=== PATIENT | female | born 1950 | race Hispanic/Latino ===

== ENCOUNTER 2018-06-28 09:34 | Emergency (ER) | payer OTHER ==
[2018-06-28 09:51] LABS: BASOPHILS % (AUTO) 0.5 % (0.0-5.0); EOSINOPHILS % (AUTO) 1.9 % (0.0-8.0); HEMATOCRIT 37.6 % (36-48); LYMPHOCYTES % (AUTO) 19.7 % (21.0-51.0); MEAN CORPUSCULAR HEMOGLOBIN 30.1 pg (27.0-33.0); MEAN CORPUSCULAR HGB CONC 33.8 g/dL (32.0-36.0); MEAN CORPUSCULAR VOLUME 88.8 fL (79-99); MONOCYTES % (AUTO) 8.9 % (3.0-13.0); PLATELET COUNT (AUTO) 166 K/uL (130-400); RED BLOOD CELL COUNT(AUTO) 4.23 MIL/uL (4.00-5.50); WHITE BLOOD COUNT (AUTO) 9.5 K/uL (4.8-10.8)
[2018-06-28] MEDS ORDERED: ORPHENADRINE CITRATE 30 MG/ML ML ONE (10:28)
[2018-06-28 10:30] LABS: ALBUMIN 3.2 g/dL (3.5-5.0); BILIRUBIN,TOTAL 0.5 mg/dL (0.2-1.0); CREATININE 0.9 mg/dL (0.5-1.5); POTASSIUM 3.9 mmol/L (3.5-5.1); TOTAL PROTEIN, SERUM 6.8 g/dL (6.0-8.3)
== END 2018-06-28 11:22 | disposition home or self-care (01) ==
LOC: EDH 09:34
DX: M25.812 Other specified joint disorders, left shoulder (principal); M25.512 Pain in left shoulder; M19.90 Unspecified osteoarthritis, unspecified site; E07.9 Disorder of thyroid, unspecified; Z88.8 Allergy status to other drugs, medicaments and biological substances; Z87.891 Personal history of nicotine dependence
CPT/HCPCS: 36415; 73030; 80053; 84484; 85025; 93005; 96374; 99285; J2360

== ENCOUNTER → 2018-07-10 | Outpatient (CLI) | payer OTHER | END | disposition home or self-care (01) | LOC: OIH 10:45 | PROVIDERS: ATTEND Internal Medicine | DX: M17.0 Bilateral primary osteoarthritis of knee (principal); M23.92 Unspecified internal derangement of left knee | CPT/HCPCS: 73560 ==

== ENCOUNTER 2018-12-10 06:51 | Emergency (ER) | payer OTHER ==
[2018-12-10] MEDS ORDERED: ASPIRIN 325 MG TABLET ONE (07:35)
[2018-12-10] MEDS ORDERED: NITROGLYCERIN 1GM/1 INCH PACKET TD ONE (07:35)
[2018-12-10 07:40] LABS: BASOPHILS % (AUTO) 0.8 % (0.0-5.0); EOSINOPHILS % (AUTO) 4.2 % (0.0-8.0); HEMATOCRIT 37.7 % (36-48); LYMPHOCYTES % (AUTO) 41.4 % (21.0-51.0); MEAN CORPUSCULAR HEMOGLOBIN 29.8 pg (27.0-33.0); MEAN CORPUSCULAR HGB CONC 32.8 g/dL (32.0-36.0); MEAN CORPUSCULAR VOLUME 90.8 fL (79-99); MONOCYTES % (AUTO) 7.1 % (3.0-13.0); NEUTROPHILS % (AUTO) 46.5 % (40.0-77.0); NUCLEATED RED BLOOD CELLS 0.1 % (0.0-0.19); PLATELET COUNT (AUTO) 194 K/uL (130-400); RED BLOOD CELL COUNT(AUTO) 4.15 MIL/uL (4.00-5.50); RED CELL DISTRIBUTION WIDTH 14.4 % (11.0-15.5); WHITE BLOOD COUNT (AUTO) 5.3 K/uL (4.8-10.8)
[2018-12-10 07:50] LABS: INR 0.91 (0.85-1.15); PROTHROMBIN TIME 9.6 SEC (9.6-11.6)
[2018-12-10 08:42] LABS: ALBUMIN 3.2 g/dL (3.5-5.0); BILIRUBIN,TOTAL 0.2 mg/dL (0.2-1.0); MAGNESIUM 1.9 mg/dL (1.80-2.40); THYROID STIMULATING HORMONE 1.72 uIU/mL (0.36-3.74); TOTAL PROTEIN, SERUM 6.7 g/dL (6.0-8.3)
[2018-12-10 08:56] LABS: CREATININE 0.8 mg/dL (0.5-1.5)
== END 2018-12-10 11:31 | disposition home or self-care (01) ==
LOC: EDH 06:51
DX: R00.2 Palpitations (principal); R07.89 Other chest pain; R03.0 Elevated blood-pressure reading, without diagnosis of hypertension; E03.9 Hypothyroidism, unspecified; M19.90 Unspecified osteoarthritis, unspecified site; Z88.8 Allergy status to other drugs, medicaments and biological substances
CPT/HCPCS: 36415; 71045; 80053; 82550; 83735; 84443; 84484; 85025; 85610; 85730; 93005

== ENCOUNTER → 2019-07-22 | Outpatient (CLI) | payer OTHER | END | disposition home or self-care (01) | LOC: RAH 13:09 | PROVIDERS: ATTEND Internal Medicine | DX: J34.2 Deviated nasal septum (principal); H55.00 Unspecified nystagmus; J32.1 Chronic frontal sinusitis; R09.81 Nasal congestion | CPT/HCPCS: 70486 ==

== ENCOUNTER → 2019-08-12 | Outpatient (CLI) | payer OTHER | END | disposition home or self-care (01) | LOC: RAH 09:20 | PROVIDERS: ATTEND Internal Medicine | DX: S90.851A Superficial foreign body, right foot, initial encounter (principal); R59.0 Localized enlarged lymph nodes; M25.462 Effusion, left knee; X58.XXXA Exposure to other specified factors, initial encounter; Y93.89 Activity, other specified; Y92.89 Other specified places as the place of occurrence of the external cause; Y99.8 Other external cause status | CPT/HCPCS: 76882 ==

== ENCOUNTER 2019-11-15 00:47 | Emergency (ER) | payer OTHER | END 2019-11-15 02:11 | disposition home or self-care (01) | LOC: EDH 00:47 | DX: F43.0 Acute stress reaction (principal); R00.2 Palpitations; M19.90 Unspecified osteoarthritis, unspecified site; Z90.49 Acquired absence of other specified parts of digestive tract; Z90.710 Acquired absence of both cervix and uterus; Z88.8 Allergy status to other drugs, medicaments and biological substances; Z88.9 Allergy status to unspecified drugs, medicaments and biological substances | CPT/HCPCS: 93005 ==

== ENCOUNTER → 2020-02-03 | Outpatient (CLI) | payer OTHER | END | disposition home or self-care (01) | LOC: OIH 10:39 | PROVIDERS: ATTEND Internal Medicine | DX: M54.16 Radiculopathy, lumbar region (principal); I70.0 Atherosclerosis of aorta | CPT/HCPCS: 72100 ==

== ENCOUNTER → 2020-04-08 | Outpatient (CLI) | payer OTHER ==
[~2020-04-08] MED LIST: REGADENOSON 0.4 MG/5 ML PF SYG IVP SCH
== END | disposition home or self-care (01) ==
LOC: SHCH 07:45
PROVIDERS: ATTEND Internal Medicine Cardiovascular Disease
DX: I25.10 Atherosclerotic heart disease of native coronary artery without angina pectoris (principal)
CPT/HCPCS: 78452; 93017; 96374; A9500 ×2; J2785

== ENCOUNTER → 2021-01-19 | Outpatient (CLI) | payer OTHER | END | disposition home or self-care (01) | LOC: OIH 09:49 | PROVIDERS: ATTEND Internal Medicine | DX: I10 Essential (primary) hypertension (principal); I70.0 Atherosclerosis of aorta | CPT/HCPCS: 71046 ==

== ENCOUNTER 2022-02-26 10:35 | Emergency (ER) | payer OTHER ==
[~2022-02-26] VITALS: Ht 152.4 cm; Wt 77.6 kg
[2022-02-26] MEDS ORDERED: NAPROXEN 500 MG TABLET PO SCH (11:00)
[2022-02-26] MEDS ORDERED: NAPROXEN 250 MG TAB ONE (11:06)
[2022-02-26] MEDS ORDERED: NAPR-1196 PO (12:01)
[2022-02-26 12:22] VITALS: BP 135/65
== END 2022-02-26 12:22 | disposition home or self-care (01) ==
LOC: EDH 10:35
DX: S39.012A Strain of muscle, fascia and tendon of lower back, initial encounter (principal); F32.A Depression, unspecified; M79.7 Fibromyalgia; Z90.710 Acquired absence of both cervix and uterus; X58.XXXA Exposure to other specified factors, initial encounter; Y93.89 Activity, other specified; Y92.89 Other specified places as the place of occurrence of the external cause; Y99.8 Other external cause status
CPT/HCPCS: 72100

== ENCOUNTER 2022-05-06 13:18 | Emergency (ER) | payer OTHER ==
[~2022-05-06] VITALS: Ht 152.4 cm; Wt 77.1 kg
[~2022-05-06 13:18] MED LIST changes: +NAPR-1196 PO; -REGADENOSON 0.4 MG/5 ML PF SYG IVP SCH
[2022-05-06 14:26] VITALS: BP 140/58
[2022-05-06] MEDS ORDERED: ACETAMINOPHEN 500 MG TABLET PO ONE (14:30)
== END 2022-05-06 14:45 | disposition home or self-care (01) ==
LOC: EDH 13:18
DX: T23.012A Burn of unspecified degree of left thumb (nail), initial encounter (principal); M79.7 Fibromyalgia; Z79.1 Long term (current) use of non-steroidal anti-inflammatories (NSAID); T31.0 Burns involving less than 10% of body surface; X13.1XXA Other contact with steam and other hot vapors, initial encounter; Y93.89 Activity, other specified; Y92.89 Other specified places as the place of occurrence of the external cause; Y99.8 Other external cause status
CPT/HCPCS: 99282

== ENCOUNTER 2022-09-10 19:28 | Emergency (ER) | payer OTHER ==
[~2022-09-10] VITALS: Ht 152.4 cm; Wt 79.4 kg
[2022-09-10 20:27] LABS: BASOPHILS % (AUTO) 0.4 % (0.0-5.0); EOSINOPHILS % (AUTO) 0.2 % (0.0-8.0); HEMATOCRIT 39.5 % (36-48); LYMPHOCYTES % (AUTO) 18.7 % (21.0-51.0); MEAN CORPUSCULAR HGB CONC 33.7 g/dL (32.0-36.0); MONOCYTES % (AUTO) 6.7 % (3.0-13.0); NEUTROPHILS % (AUTO) 73.8 % (40.0-77.0); PLATELET COUNT (AUTO) 202 K/uL (130-400); RED BLOOD CELL COUNT(AUTO) 4.44 MIL/uL (4.00-5.50); RED CELL DISTRIBUTION WIDTH 13.2 % (11.0-15.5); WHITE BLOOD COUNT (AUTO) 8.3 K/uL (4.8-10.8)
[2022-09-10 20:31] LABS: APPEARANCE,URINE CLEAR (CLEAR); BILIRUBIN,URINE NEGATIVE (NEGATIVE); COLOR,URINE LIGHT-YELLOW (YELLOW); GLUCOSE, URINE (UA) NEGATIVE (NEGATIVE); KETONES,URINE 40 mg/dL (NEGATIVE); LEUKOCYTE ESTERASE ,URINE NEGATIVE Leu/uL (NEGATIVE); NITRATE,URINE NEGATIVE (NEGATIVE); OCCULT BLOOD,URINE NEGATIVE (NEGATIVE); PH,URINE 5.5 (5.0-8.0); PROTEIN,URINE NEGATIVE (NEGATIVE); UROBILINOGEN,URINE 0.2 mg/dL (0.2-1.0)
[2022-09-10 20:36] LABS: CREATININE 0.9 mg/dL (0.5-1.5); POTASSIUM 3.7 mmol/L (3.5-5.1)
[2022-09-10 20:41] LABS: ALBUMIN 3.9 g/dL (3.5-5.0); TOTAL PROTEIN, SERUM 8.2 g/dL (6.0-8.3)
[2022-09-10 22:00] VITALS: BP 146/71
[2022-09-10] MEDS ORDERED: ONDA-104 PO (22:09)
[2022-09-10] MEDS ORDERED: OMEP40CA21 PO (22:09)
== END 2022-09-10 22:31 | disposition home or self-care (01) ==
LOC: EDH 19:28
DX: R10.11 Right upper quadrant pain (principal); B34.9 Viral infection, unspecified; Z20.822 Contact with and (suspected) exposure to COVID-19; M79.7 Fibromyalgia; E03.9 Hypothyroidism, unspecified; Z88.8 Allergy status to other drugs, medicaments and biological substances; Z79.899 Other long term (current) drug therapy; Z98.890 Other specified postprocedural states; Z90.89 Acquired absence of other organs
CPT/HCPCS: 99283; 87635; 80053; 83690; 85025; 87804 ×2; 81003; 36415; C9803

== ENCOUNTER → 2022-10-31 | Outpatient (CLI) | payer OTHER ==
[~2022-10-31] MED LIST changes: +OMEP40CA21 PO; +ONDA-104 PO
== END | disposition home or self-care (01) ==
LOC: RAH 13:25
PROVIDERS: ATTEND Physical Medicine & Rehabilitation
DX: M47.26 Other spondylosis with radiculopathy, lumbar region (principal); M54.51 Vertebrogenic low back pain; M99.05 Segmental and somatic dysfunction of pelvic region
CPT/HCPCS: 72114

== ENCOUNTER → 2023-06-04 | Outpatient (CLI) | payer OTHER | END | disposition home or self-care (01) | LOC: RAH 11:13 | PROVIDERS: ATTEND Internal Medicine | DX: M23.91 Unspecified internal derangement of right knee (principal) | CPT/HCPCS: 73560 ==

== ENCOUNTER → 2023-09-25 | Outpatient (CLI) | payer OTHER | END | disposition home or self-care (01) | LOC: RAH 10:28 | PROVIDERS: ATTEND Physician Assistant | DX: M47.812 Spondylosis without myelopathy or radiculopathy, cervical region (principal); M54.2 Cervicalgia; M48.02 Spinal stenosis, cervical region; R29.2 Abnormal reflex | CPT/HCPCS: 72050 ==

== ENCOUNTER → 2023-10-24 | Outpatient (CLI) | payer OTHER | END | disposition home or self-care (01) | LOC: RAH 08:45 | PROVIDERS: ATTEND Physician Assistant | DX: M50.321 Other cervical disc degeneration at C4-C5 level (principal); M47.812 Spondylosis without myelopathy or radiculopathy, cervical region; R29.2 Abnormal reflex; M48.02 Spinal stenosis, cervical region | CPT/HCPCS: 72141 ==

== ENCOUNTER → 2023-12-27 | Outpatient (CLI) | payer OTHER | END | disposition home or self-care (01) | LOC: RAH 14:46 | PROVIDERS: ATTEND Physical Medicine & Rehabilitation | DX: R29.2 Abnormal reflex (principal); Z88.8 Allergy status to other drugs, medicaments and biological substances | CPT/HCPCS: 70551 ==

== ENCOUNTER → 2024-02-12 | Outpatient (CLI) | payer OTHER | END | disposition home or self-care (01) | LOC: RAH 14:46 | PROVIDERS: ATTEND Physical Medicine & Rehabilitation | DX: M47.26 Other spondylosis with radiculopathy, lumbar region (principal); M48.07 Spinal stenosis, lumbosacral region | CPT/HCPCS: 72148 ==

== ENCOUNTER 2025-04-18 19:57 | Emergency (ER) | payer OTHER ==
[~2025-04-18] VITALS: Ht 152.4 cm; Wt 77.1 kg
--- NOTE | 2025-04-18 21:41 | NUR ---
AZUL GARCIA MADE AWARE OF ELEVATED BP
[2025-04-18 22:08] LABS: IMMATURE GRANULOCYTE ABSOLUTE 0.03 K/uL (0-1); NUCLEATED RED BLOOD CELLS 0.0 % (0.0-0.19); PLATELET COUNT (AUTO) 192 K/uL (130-400); RED BLOOD CELL COUNT(AUTO) 3.97 MIL/uL (4.00-5.50); RED CELL DISTRIBUTION WIDTH 13.2 % (11.0-15.5); WHITE BLOOD COUNT (AUTO) 8.5 K/uL (4.8-10.8)
--- NOTE | 2025-04-18 22:13 | EKG ---
[facility] Test Date: 2025-04-18 Test Time: 22:10:32 Pat Name: RUSTY PASTRANA Department: ED Room: Gender: F Weight Loss Physician: 08 : [id number] Requested By: JOSE SMITH Order Number: [id number] Reading MD: Uriel Raygoza Measurements Intervals [place] Rate: 86 P: 51 [place]: 144 QRS: 27 QRSD: 77 T: 21 QT: 394 QTc: 471 Interpretive Statements Sinus rhythm Low voltage, precordial leads Compared to ECG 11/15/2019 01:41:06 No significant changes Electronically Signed On 04-19-2025 10:33:53 CDT by Uriel Raygoza Please click the below link to view image of tracing.
[2025-04-18 22:15] LABS: CREATININE 0.9 mg/dL (0.5-1.0); GLOMERULAR FILTR. RATE CALC 67.0 mL/min (>90); GLUCOSE,RANDOM 92.0 mg/dL (70-105); SODIUM SERUM 145.0 mmol/L (136-145); UREA NITROGEN, BLOOD 24.0 mg/dL (7-18)
--- NOTE | 2025-04-18 23:32 | HMCIMG ---
EXAM: CR Left Shoulder, 2 views. CLINICAL HISTORY: Fall. COMPARISON: None provided. FINDINGS: No acute fracture or aggressive appearing osseous lesion. Mild osteopenia. Mild osteoarthritis in the acromioclavicular and glenohumeral joints. The soft tissues are unremarkable. IMPRESSION: No acute bony abnormality is evident. Mild osteopenia. Mild osteoarthritis. /[place]
--- NOTE | 2025-04-18 23:33 | HMCIMG ---
EXAM: CR Right Knee, 3 views. CLINICAL HISTORY: Fall. COMPARISON: None provided. FINDINGS: No acute fracture or aggressive appearing osseous lesion. Mild osteopenia. Medial compartment predominant mild to moderate tricompartmental knee joint osteoarthritis. There is no joint effusion appreciated. The soft tissues are unremarkable. IMPRESSION: No acute bony abnormality is evident. Mild osteopenia. Medial compartment predominant mild to moderate tricompartmental knee joint osteoarthritis. /[place]
--- NOTE | 2025-04-18 23:36 | HMCIMG ---
EXAM: CT Head Without IV contrast. CLINICAL HISTORY: Patient presents with hypertensive urgency. TECHNIQUE: Axial computed tomography images of the head/brain without intravenous contrast. COMPARISON: MRI brain dated December 27, 2023. FINDINGS: BRAIN: No acute intraparenchymal hemorrhage. No mass lesion. No CT evidence for acute territorial infarct. No midline shift or extra-axial collections. Generalized cerebral atrophy with prominent cortical sulci, basal cisterns, and bilateral sylvian fissures. Periventricular hypodensities concerning for chronic microangiopathic ischemic changes. VENTRICLES: No hydrocephalus. ORBITS: The orbits are unremarkable. SINUSES AND MASTOIDS: The paranasal sinuses and mastoid air cells are clear. BONES: No fracture. SOFT TISSUES: Unremarkable. IMPRESSION: Generalized cerebral atrophy. Chronic microangiopathic ischemic changes. No acute intracranial abnormality. /[place]
--- NOTE | 2025-04-19 00:24 | ERN ---
General Chief Complaint: Mechanical Fall Stated Complaint: FALL Time Seen by MD: 20:35 History of Present Illness Allergies: Coded Allergies: diphenhydramine (Unverified Allergy, Unknown, 11/15/19) Home Meds Active Scripts Ondansetron HCl (Ondansetron HCl) 4 Mg Tablet, 4 MG PO TIDP PRN for VOMITING, #20 TAB Prov:REYMUNDO GARNER MD 09/10/22 Omeprazole (Omeprazole) 40 Mg Capsule.dr, 40 MG PO DAILY, #30 CAP Prov:REYMUNDO GARNER MD 09/10/22 Naproxen (Naproxen) 250 Mg Tablet, 375 MG PO BID for 7 Days, #14 TAB Prov:BRYCE MELENDEZ MD 02/26/22 Past Medical History Past Medical History: Depression, Fibromyalgia, Hypothyroid, Other Medical History Other: THYROID, ACID REFLUX Past Surgical History: Hysterectomy, Tonsillectomy Family History Family History: Negative Social History Social History: Negative, Lives with family Results Laboratory and Microbiology Lab and Micro Result Laboratory Tests Test 04/18/25 22:00 White Blood Count 8.5 K/uL (4.8-10.8) Red Blood Count 3.97 MIL/uL (4.00-5.50) L Hemoglobin 12.0 g/dL (12.0-16.0) Hematocrit 36.5 % (36-48) Mean Corpuscular Volume 91.9 fL (79-99) Mean Corpuscular Hemoglobin 30.2 pg (27.0-33.0) Mean Corpuscular Hemoglobin Concent 32.9 g/dL (32.0-36.0) Red Cell Distribution Width 13.2 % (11.0-15.5) Platelet Count 192 K/uL (130-400) Mean Platelet Volume 10.4 fL (7.5-10.5) Immature Granulocyte % (Auto) 0.4 % (0-1) Neutrophils (%) (Auto) 55.7 % (40.0-77.0) Lymphocytes (%) (Auto) 32.8 % (21.0-51.0) Monocytes (%) (Auto) 8.1 % (3.0-13.0) Eosinophils (%) (Auto) 2.8 % (0.0-8.0) Basophils (%) (Auto) 0.2 % (0.0-5.0) Neutrophils # (Auto) 4.7 K/uL (1.8-7.7) Lymphocytes # (Auto) 2.8 K/uL (1.0-4.8) Monocytes # (Auto) 0.7 K/uL (0.1-1.0) Eosinophils # (Auto) 0.24 K/uL (0.00-0.70) Basophils # (Auto) 0.02 K/uL (0.00-0.20) Absolute Immature Granulocyte (auto 0.03 K/uL (0-1) Nucleated Red Blood Cells 0.0 % (0.0-0.19) Sodium Level 145 mmol/L (136-145) Potassium Level 4.3 mmol/L (3.5-5.1) Chloride Level 106 mmol/L (101-111) Carbon Dioxide Level 28 mmol/L (21-32) Blood Urea Nitrogen 24 mg/dL (7-18) H Creatinine 0.9 mg/dL (0.5-1.0) Glomerular Filtration Rate Calc 67 mL/min (>90) Random Glucose 92 mg/dL (70-105) Total Calcium 9.1 mg/dL (8.5-10.1) Troponin I High Sensitivity 12 ng/L (4-50) ED Course Orders Procedure Category Date Status Time Knee 3vws Rt RAD 04/18/25 Resulted 20:38 Shoulder Comp 2+Vws Lt RAD 04/18/25 Resulted 20:38 12 Lead Ekg Tracing- EKG 04/18/25 Complete Technical 21:57 Cbc With Differential LAB 04/18/25 Complete 21:57 Basic Metabolic Panel LAB 04/18/25 Complete 21:57 Troponin I High LAB 04/18/25 Complete Sensitivity 21:57 Ct Head/Brain W/O CT 04/18/25 Resulted Contrast 21:57 Hydralazine 20mg Inj PHA 04/18/25 Complete (Apresoline 20mg In 22:00 Ketorolac PHA 04/19/25 Complete Tromethamine 15mg/Ml 00:00 Current Medications Medications (Trade) Dose Ordered Sig/[place]ley Route PRN Reason Start Time Stop Time Status Last Admin Dose Admin Hydralazine HCl (APRESOLine 20MG INJ) 10 mg ONCE ONCE IV 04/18/25 22:00 04/18/25 22:02 DC 04/18/25 22:03 Ketorolac Tromethamine (toRADol) 15 mg ONCE ONCE IV 04/19/25 00:00 04/19/25 00:01 DC 04/18/25 23:51 Vital Signs Date Time Temp Pulse Resp B/P (MAP) Pulse Ox O2 Delivery O2 Flow Rate FiO2 04/18/25 23:43 98.1 89 18 158/72 97 Room Air* 0 04/18/25 22:47 98.2 94 17 172/89 98 Room Air* 0 04/18/25 21:41 98.2 82 18 201/89 99 Room Air* 0 04/18/25 21:15 98.2 81 17 182/95 98 Room Air* 0 04/18/25 19:58 97.9 85 18 181/80 98 Room Air DX & DISP Disposition: Discharge Departure Impression: Primary Impression: Fall Additional Impression: Elevated blood pressure reading Condition: Stable Additional Instructions: Your CT scan of the head does not show any acute intracranial abnormality. Your shoulder and knee x-ray do not show any evidence of an acute fracture or dislocation. Your blood work today is unremarkable. Your electrolytes are normal. You are not anemic. Your kidney function is normal. Your cardiac enzymes are negative. Your blood pressure was elevated on arrival but you were given IV medication and your blood pressure improved while in the emergency department. You need to follow up with your primary care doctor in 2-3 days for repeat evaluation. Monitor your blood pressure over the next two weeks and keep a blood pressure log. Return to the ER if you develop any new or worsening symptoms Referrals: EULA DUNHAM MD (PCP) I have reviewed the case, and I agree with, Diagnosis and Plan I performed the substantive portion of the visit. I have reviewed and personally made and approve the management plan that is documented in the note by myself or the ROXY. I acknowledge for responsibility for the patient's management plan. JOSE SMITH Apr 19, 2025 00:24
[2025-04-19 00:37] VITALS: BP 151/67; PULSE 84; RESP 16; TEMP 98.2; O2SAT 98
== END 2025-04-19 00:51 | disposition home or self-care (01) ==
LOC: EDH 19:57
DX: R03.0 Elevated blood-pressure reading, without diagnosis of hypertension (principal); E03.9 Hypothyroidism, unspecified; M79.7 Fibromyalgia; F32.A Depression, unspecified; Z79.899 Other long term (current) drug therapy; Z90.710 Acquired absence of both cervix and uterus
CPT/HCPCS: 99285; 96374; 70450; 96375; 84484; 80048; 85025; 36415; 73562; 73030; 93005; J1885; J0360

== ENCOUNTER → 2025-07-09 | Outpatient (CLI) | payer OTHER ==
--- NOTE | 2025-07-09 16:23 | HMCIMG ---
PELVIS RADIOGRAPH (2 VIEW) INDICATION: Pain COMPARISON: None FINDINGS: No evidence for acute fracture or dislocation. Sacroiliac joints appear normal. Both hip joints appear normal. There is atherosclerotic changes of both femoral arteries with calcified plaque. There is mild osteopenia IMPRESSION: No radiographic evidence for fracture or dislocation. If patient is unable to bear weight and/or clinical suspicion persists, further evaluation with MR imaging of the affected side will be necessary..
== END | disposition home or self-care (01) ==
LOC: RAH 08:57
PROVIDERS: ATTEND Physician Assistant
DX: I70.203 Unspecified atherosclerosis of native arteries of extremities, bilateral legs (principal); M85.88 Other specified disorders of bone density and structure, other site; M25.551 Pain in right hip; M25.552 Pain in left hip; M99.05 Segmental and somatic dysfunction of pelvic region
CPT/HCPCS: 73521